=== PATIENT | male | born 1950 | race Caucasian/White ===

== ENCOUNTER 2016-08-16 01:30 | Inpatient (IN) ==
[2016-08-16] MEDS ORDERED: Ipratropium/Albuterol Neb 3 ML IH ONE (01:40)
[2016-08-16] MEDS ORDERED: Ipratropium/Albuterol Neb 3 ML ONE (01:41)
[2016-08-16] MEDS ORDERED: methylPREDNISolone 125 MG/2 ML VIAL IVP ONE (01:41)
--- NOTE | 2016-08-16 01:50 | Emergency Department Note ---
Disposition Clinical Impression: COPD exacerbation Disposition: Admitted As Inpatient Condition: Fair SOB HPI - General Chief Complaint: ED Chest Pain Stated Complaint: SOB,cough,chest pain Time Seen by Provider: 08/16/16 01:37 Source: patient Mode of arrival: private vehicle Limitations: no limitations Nursing Notes Reviewed: Yes Vital Signs Reviewed: Yes - History of Present Illness 66-year-old male history of oxygen-dependent COPD who presents to the ER with a chief complaint of shortness of breath. Patient reports he woke from sleep with abrupt onset shortness of breath. He states he tried a breathing treatment at home without any relief. He wears 2 L at home at rest and 4 L with activity. He denies any recent illnesses. He states when he woke up he was having a cough. He denies any fevers at home. He does endorse chest pain that is sharp in the center of his chest. He denies any history of cardiac events, OK, stents. Patient has been admitted for similar symptoms in the past. No other complaints. 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 Denies: fever, sputum production Treatment prior to arrival: oxygen, bronchodilator Cough present: Yes Cough Description: Involuntary Cough Frequency: Intermittent Sputum production: No Sputum Amount: None - Related Data Home oxygen amount: 2 liters Home Medications Medication Instructions Recorded Confirmed Albuterol Sulfate [Proair Hfa] 2 puff IH Q4H 04/20/15 02/28/16 Budesonide/Formoterol 160/4.5 2 puff IH BIDR 04/20/15 02/28/16 [Symbicort 160/4.5] Carbidopa/Levodopa ER 50/200 1 tab PO TID 04/20/15 02/28/16 [Sinemet ER 50-200 Tab] Pramipexole [Mirapex] 0.125 mg PO BID 04/20/15 02/28/16 Tiotropium [Spiriva] 18 mcg IH DAILY 04/20/15 02/28/16 clonazePAM [Klonopin] 0.5 mg PO Q8H 04/20/15 02/28/16 hydroCHLOROthiazide 12.5 mg PO DAILY 02/28/16 02/28/16 [Hydrochlorothiazide] Previous Rx's Medication Instructions Recorded Azithromycin [Zithromax] 500 mg PO DAILY #3 tablet 02/29/16 Metoprolol [Lopressor] 25 mg PO BID #60 tablet 02/29/16 Omeprazole [PriLOSEC] 20 mg PO DAILY #30 cap 02/29/16 predniSONE [Prednisone] 60 mg PO DAILY 14 Days 02/29/16 Allergies Allergy/AdvReac Type Severity Reaction Status Date / Time lisinopril Allergy Swelling Verified 08/16/16 01:31 of Lip/Tongue/Throat All systems ED: reviewed and negative except as stated. Constitutional: Denies: fever Cardiovascular: Reports: chest pain Respiratory: Reports: cough, dyspnea, wheezes Gastrointestinal: Denies: abdominal pain, nausea, vomiting Musculoskeletal: Denies: back pain Past Medical History - Past Medical History Attestation: Yes The following information was validated with the patient. Source: patient Medical history: Reports: arthritis, COPD, fibromyalgia, hypertension Surgical history: Reports: herniorrhaphy Psychiatric history: Reports: no psych history - Social History Smoking Status: Former smoker Smokeless Tobacco Status: No Alcohol use: Reports: none Drug use: Reports: none Physical Exam - General Limitations: no limitations General appearance: alert, in distress - Head Head exam: atraumatic, normocephalic, normal inspection - Eye Eye exam: Present: normal appearance, EOMI - ENT ENT exam: normal exam - Neck Neck exam: Present: normal inspection - Chest Chest inspection: Present: normal inspection, symmetric chest wall rise - Respiratory Respiratory exam: Present: respiratory distress (Patient has diffuse wheezing with poor air movement and accessory muscle use), wheezes, accessory muscle use , prolonged expiratory phase - Cardiovascular Cardiovascular exam: Present: normal rhythm, tachycardia, normal heart sounds - Abdominal Exam Abdominal exam: Present: soft, Non-Tender. Absent: tenderness - Extremities Exam Extremities exam: Present: normal inspection, full ROM - Expanded Upper Extremity Exam Shoulder exam: Present: normal inspection, full ROM Arm exam: Present: normal inspection, full ROM Elbow exam: Present: normal inspection, full ROM Forearm/Wrist exam: Present: normal inspection, full ROM Hand exam: Present: normal inspection, full ROM - Expanded Lower Extremity Exam Hip/Pelvis exam: Present: normal inspection, full ROM Upper leg exam: Present: normal inspection, full ROM Knee exam: Present: normal inspection, full ROM Lower leg exam: Present: normal inspection, full ROM Ankle exam: Present: normal inspection, full ROM Foot/toe exam: Present: normal inspection, full ROM - Neurological Exam Neurological exam: Present: alert - Psychiatric Psychiatric exam: Present: normal affect, normal mood - Skin Skin exam: Present: warm, dry, intact, normal color Course Course Narrative: Patient seen and examined. Vital signs reviewed. He appears in respiratory distress with poor air movement, accessory muscle use and diffuse wheezing. He has 92% on 3 L currently. Duo nebs will be started now as well as IV Solu- Medrol. EKG, chest x-ray and labs ordered. - Reevaluation(s) Reevaluation #1: Reevaluated after DuoNeb treatments. Patient still has diffuse wheezing and poor air movement. He is agreeable with trying BiPAP. Patient will be admitted for further management. Vital Signs Temperature 98.8 F 08/16/16 01:31 Pulse Rate 139 08/16/16 01:31 Respiratory Rate 26 08/16/16 01:31 Blood Pressure 162/109 08/16/16 01:31 O2 Sat by Pulse Oximetry 87 08/16/16 01:31 Temperature 98.8 F 08/16/16 01:31 Pulse Rate 130 08/16/16 03:00 Respiratory Rate 18 08/16/16 03:19 Blood Pressure 113/81 08/16/16 03:19 O2 Sat by Pulse Oximetry 94 08/16/16 03:00 Oxygen Delivery Oxygen Delivery Bipap Shortness of Breath/Dyspnea - MDM Narrative Medical decision making narrative: 66-year-old male history of oxygen-dependent COPD presents to the ER due to abrupt shortness of breath. Denies any recent illness. Woke up with a nonproductive cough and chest pain. He is usually on 2-4 L at home. He is 92% on 3 L here. After DuoNeb treatments and steroids he continues to have poor air movement and diffuse wheezing. Patient placed on BiPAP and admitted to the hospitalist service for further management. - Lab Data Lab results reviewed: Yes I reviewed the patient's lab results. Result diagrams: 08/16/16 01:50 08/16/16 01:50 Lab Results 08/16/16 08/16/16 08/16/16 Range/Units 01:50 01:50 01:50 WBC 6.3 (4.3-11.1) K/mcL RBC 4.97 (4.19-5.50) M/mcL Hgb 15.4 (12.9-16.9) g/dL Hct 46.7 (37.5-50.1) % MCV 94.0 (83.0-100.0) fL MCH 31.0 (28.0-33.3) pg MCHC 33.0 (31.6-35.5) g/dL RDW 13.2 (11.5-14.5) % Plt Count 192 (140-400) K/mcL MPV 9.9 (9.4-12.4) fL Immature Gran % 0.3 (0-4) % Seg Neutrophils % 60.3 % Lymphocytes % 22.6 % Monocytes % 10.7 % Eosinophils % 5.5 % Basophils % 0.6 % Neutrophils # 3.8 (1.6-8.9) K/mcL Lymphocytes # 1.4 (0.6-4.6) K/mcL Monocytes # 0.7 (0.0-1.3) K/mcL Eosinophils # 0.4 (0.0-0.6) K/mcL Basophils # 0.0 (0.0-0.2) K/mcL Sodium 143 (136-145) mEq/L Potassium 4.0 (3.5-4.5) mEq/L Chloride 103 (98-109) mEq/L Carbon Dioxide 28 (19-29) mEq/L BUN 18 (8-26) mg/dL Creatinine 1.38 H (0.72-1.25) mg/dL Est GFR ( Amer) > 60 (> 60) Est GFR (Non-Af Amer) 51 L (> 60) BUN/Creatinine Ratio 13 (6-26) Glucose 98 (70-99) mg/dL Calculated Osmolality 298 (280-300) Calcium 9.6 (8.6-10.8) mg/dL Troponin I (0-0.03) ng/mL B-Natriuretic Peptide < 10 (0-100) pg/mL 08/16/16 Range/Units 01:50 WBC (4.3-11.1) K/mcL RBC (4.19-5.50) M/mcL Hgb (12.9-16.9) g/dL Hct (37.5-50.1) % MCV (83.0-100.0) fL MCH (28.0-33.3) pg MCHC (31.6-35.5) g/dL RDW (11.5-14.5) % Plt Count (140-400) K/mcL MPV (9.4-12.4) fL Immature Gran % (0-4) % Seg Neutrophils % % Lymphocytes % % Monocytes % % Eosinophils % % Basophils % % Neutrophils # (1.6-8.9) K/mcL Lymphocytes # (0.6-4.6) K/mcL Monocytes # (0.0-1.3) K/mcL Eosinophils # (0.0-0.6) K/mcL Basophils # (0.0-0.2) K/mcL Sodium (136-145) mEq/L Potassium (3.5-4.5) mEq/L Chloride (98-109) mEq/L Carbon Dioxide (19-29) mEq/L BUN (8-26) mg/dL Creatinine (0.72-1.25) mg/dL Est GFR ( Amer) (> 60) Est GFR (Non-Af Amer) (> 60) BUN/Creatinine Ratio (6-26) Glucose (70-99) mg/dL Calculated Osmolality (280-300) Calcium (8.6-10.8) mg/dL Troponin I 0.00 (0-0.03) ng/mL B-Natriuretic Peptide (0-100) pg/mL - Radiology Data Radiology results reviewed: Yes I reviewed the patient's radiology results. Chest X-Ray 08/16/16 01:40 IMPRESSION: Emphysema. No definite acute disease. D/ / Thiago Moise MD / Thiago Moise MD Interpreting Provider: Thiago Moise MD - EKG Data EKG attestation: Yes I reviewed and interpreted this EKG. EKG results narrative: EKG demonstrates sinus tachycardia with a rate of 127 with PVCs. Normal axis. WI interval 139 QRS duration 99 QTc 353. EKG with significant artifact. No ST elevations or depressions. No acute ischemic findings. No significant changes from previous EKG dated 02/27/16. Critical Care Time Critical Care Time: Yes Total Critical Care Time: 35 Attestation: Critical care performed: Time is exclusive of separately billable procedures. Time includes: direct patient care, patient reassessment, coordination of patient care, interpretation of data (laboratory data, radiology data, and respiratory data), review of patient's medical records, medical consultation and documentation of patient care. Procedures included in critical care time: Procedures excluded from critical care time: S.Victor Manuel.Ronaldo - Rafael.Corry Situation: Demographics, MOA Background: Presenting Complaint, Relevant PMH, Meds, & Allergies Assessment: Vital Signs, Course and respsone to treatment, Exam Concerns, Patient/Family Expectation, Pertinant Lab Results, Outstanding Labs Recommendation: Barrier(s) to disposition, Recommendation based on pending studies, treatments, or consults SLaith Report Given to: Dr. Deric James Repor Time: 02:55 (recommended 2N) Attestation Statement - Attestation Attestation: I, Jam Murray MD, personally evaluated this patient and discussed their management with the resident physician. I reviewed the resident's note and agree with the documented findings, medical decision making, and plan of care. 66-year-old male with history of oxygen-dependent COPD presents to the emergency department with a complaint that he awoke from sleep about 1 hour prior to arrival with severe coughing and acutely increased shortness of breath. No relief with a nebulizer treatment at home. No significant chest pain. Patient states he just cannot get his breath. History of similar episodes in the past requiring hospital admission. On examination patient is a well-developed well-nourished elderly male in mild respiratory distress. He is obviously tachypneic and using accessory muscles. Sounds are markedly decreased bilaterally with diffuse coarse bilateral inspiratory and expiratory wheezes. Heart regular with moderate tachycardia. Abdomen soft and nontender with normal bowel sounds. EKG shows sinus tachycardia with occasional PVCs. No acute ischemic changes. Chest x-ray shows COPD. Labs reviewed. Minimal improvement with Duonebs and Solu-Medrol IV. The hospitalist, Dr. Leos, was consulted and accepted admission of the patient.
[2016-08-16 02:05] LABS: Basophils % 0.6 %; Eosinophils # 0.4 K/mcL (0.0-0.6); Eosinophils % 5.5 %; Hematocrit 46.7 % (37.5-50.1); Hemoglobin 15.4 g/dL (12.9-16.9); Immature Granulocytes % 0.3 % (0-4); Lymphocytes # 1.4 K/mcL (0.6-4.6); Lymphocytes % 22.6 %; Mean Platelet Volume 9.9 fL (9.4-12.4); Monocytes # 0.7 K/mcL (0.0-1.3); Monocytes % 10.7 %; Neutrophils # 3.8 K/mcL (1.6-8.9); Platelet Count 192 K/mcL (140-400); Red Blood Count 4.97 M/mcL (4.19-5.50); Red Cell Distribution Width 13.2 % (11.5-14.5); Segmented Neutrophils % 60.3 %
[2016-08-16 02:20] LABS: BUN/Creatinine Ratio 13 (6-26); Blood Urea Nitrogen 18 mg/dL (8-26); Calcium 9.6 mg/dL (8.6-10.8); Carbon Dioxide 28 mEq/L (19-29); Chloride 103 mEq/L (98-109); Glucose 98 mg/dL (70-99); Osmolality,Calculated 298 (280-300); Sodium 143 mEq/L (136-145); eGFR For African Americans > 60 (> 60); eGFR For Non-African Americans 51 (> 60)
[2016-08-16] MEDS ORDERED: Naloxone 0.4 MG/ML INJ IVP PRN (03:58)
[2016-08-16] MEDS ORDERED: Ondansetron 4 MG/2 ML VIAL IVP PRN (03:58)
[2016-08-16] MEDS ORDERED: Acetaminophen 325 MG TABLET PO PRN (03:58)
--- NOTE | 2016-08-16 04:42 | Internal Med History&Physical ---
Date of Encounter: 08/16/16 Time of Encounter: 04:30 Assessment and Plan (1) COPD exacerbation Current visit: Yes Status: Acute Pt. has sudden onset shortness of breath waking him up from sleep, cough without sputum Using accessory muscles of respiration on exam with reduced air entry and bilateral wheezing CXR without acute pathology Labs reviewed Admit to inpatient status. Expected to be in the hospital for at least 2 midnights. High risk due to risk of worsening respiratory failure which may require intubation and mechanical ventilation. Expected discharge disposition is to home. Intravenous steroids. By mouth antibiotics for 5 days. Breathing treatments. BiPAP support. (2) Hypertension Current visit: Yes Status: Chronic Continue home medications. Adequately controlled. Qualifiers: Hypertension type: essential hypertension Qualified Code(s): I10 - Essential (primary) hypertension (3) Parkinson disease Current visit: Yes Status: Chronic Stable. Continue home medications. (4) Respiratory failure Current visit: Yes Status: Chronic Patient uses oxygen around the clock at home. Currently requiring increased oxygen and noninvasive positive pressure ventilatory support. Respiratory failure due to COPD exacerbation. Treatment as mentioned above. Qualifiers: Chronicity: acute on chronic Respiratory failure complication: hypoxia Qualified Code(s): J96.21 - Acute and chronic respiratory failure with hypoxia Internal Medicine - H&P: HPI Chief complaint: Shortness of breath Admitted From: Emergency Dept Plans for Post Hospital Care: Home History of present illness: Mr. Tse is a 66 year old male with a history of COPD on home oxygen therapy who presented to the hospital due to sudden onset shortness of breath. Patient states that he woke up from sleep at around midnight due to sudden onset shortness of breath. Shortness of breath is associated with dry cough without any sputum collection. He also reports wheezing. He states that when he coughs , he has chest pain. He states that the pain as 9/10 in intensity in the middle of the chest that is dull in nature without any radiation. Aggravated by coughing and deep breathing and relieved by rest and pain medication. Denies feeling lightheaded, palpitations. Reports some swelling in his legs. Denies any recent weight changes, fever or chills. Denies any recent sick contacts. Denies any urinary symptoms, nausea, vomiting, abdominal pain, diarrhea or constipation. Past Med Surg Social Fam HX - Past Medical History Attestation: Yes The following information was validated with the patient. Source: patient Medical history: arthritis, COPD, fibromyalgia, hypertension Psychiatric history: no psych history - Past Surgical History Surgical History: herniorrhaphy - Social History Smoking Status: Former smoker Smokeless Tobacco Status: No Alcohol use: none Drug use: marijuana Current living situation: Home - Independent Activity Level: Independent ambulation Recent Out of Country Travel Within the Last 8 Weeks: No Exposure or Possible Exposure to Illness During Travel: No - Family History Mother Living Status: Still Living Father Living Status: Hx Family Cancer: Yes Internal Medicine - H&P: Meds Albuterol Sulfate [Proair Hfa] 2 puff IH Q4H 04/20/15 [History] Budesonide/Formoterol 160/4.5 [Symbicort 160/4.5] 2 puff IH BIDR 04/20/15 [ History] Carbidopa/Levodopa ER 50/200 [Sinemet ER 50-200 Tab] 1 tab PO TID 04/20/15 [ History] Pramipexole [Mirapex] 0.125 mg PO BID 04/20/15 [History] Tiotropium [Spiriva] 18 mcg IH DAILY 04/20/15 [History] clonazePAM [Klonopin] 0.5 mg PO Q8H 04/20/15 [History] hydroCHLOROthiazide [Hydrochlorothiazide] 12.5 mg PO DAILY 02/28/16 [History] Azithromycin [Zithromax] 500 mg PO DAILY #3 tablet 02/29/16 [Rx] Metoprolol [Lopressor] 25 mg PO BID #60 tablet 02/29/16 [Rx] Omeprazole [PriLOSEC] 20 mg PO DAILY #30 cap 02/29/16 [Rx] predniSONE [Prednisone] 60 mg PO DAILY 14 Days 02/29/16 [Rx] Allergies lisinopril Allergy (Verified 08/16/16 01:31) Swelling of Lip/Tongue/Throat All Systems PM: A 10-system review of systems was performed and is negative for pertinent findings except as documented above in the HPI. Review of systems: 10 systems have been reviewed and are negative except as mentioned in the history of present illness - Constitutional Vitals: Temp Pulse Resp BP Pulse Ox 97.6 F 131 22 123/74 96 08/16/16 04:16 08/16/16 04:16 08/16/16 04:16 08/16/16 04:16 08/16/16 04:16 Exam: Gen.: Lying in bed. Mild to moderate distress. On BiPAP currently. Eyes: Pupils equal, round and reactive to light. Extraocular muscles intact. ENT: Moist mucous membranes. No oropharyngeal erythema or discharge. Chest: Reduced breath sounds bilaterally. Diffuse wheezing present. Using some accessory muscles of respiration. CVS: First and second heart sounds present. No murmurs, rubs or gallops. Tachycardia appreciated. Distant heart sounds. Abdomen: Soft, nontender, nondistended. Bowel sounds present. No hepatosplenomegaly. Skin: No decubitus ulcers appreciated. 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 Psychiatric: Alert, awake and oriented to time, place and person. Lymphatic system: No lymphadenopathy appreciated Internal Med - H&P Results - Labs CBC & Chem 7: 08/16/16 01:50 08/16/16 01:50 - EKG Data -: EKG Interpreted by Myself EKG shows normal: sinus rhythm, ST-T waves (No ST-T wave changes suggestive of ischemia) Rate: tachycardia - EKG Data Prior EKG available for review: yes When compared to previous EKG: there is no significant change - Diagnostic Studies Chest x-ray Status: image reviewed by me (No acute infiltrates or abnormalities detected; Hyperinflation present)
[2016-08-16] MEDS: *HR* Heparin 5,000 UNIT/ML VIAL SQ SCH ×3 (08:51→23:26)
[2016-08-16] MEDS: Doxycycline 100 MG CAPSULE PO SCH ×2 (08:52→20:19)
[2016-08-16] MEDS ORDERED: Albuterol 2.5 MG/3 ML NEBULIZER IH PRN (10:42)
[2016-08-16] MEDS ORDERED: Saliva Stimulant 100ml BOTTLE PO PRN (10:46)
[2016-08-16] MEDS: Ipratropium/Albuterol Neb 3 ML IH SCH ×3 (10:54→22:43)
[2016-08-16] MEDS ORDERED: clonazePAM 0.5 MG TABLET PO PRN (11:24)
[2016-08-16] MEDS: predniSONE 20 MG TABLET PO SCH (11:52)
--- NOTE | 2016-08-16 13:47 | Event Note ---
Date of Encounter: 08/16/16 Time of Encounter: 08:35 Patient continues to have shortness of breath although slightly improved since initial presentation. Still requiring BiPAP intermittently. We will evaluate overnight for BiPAP use. Continue current management with bronchodilators, systemic steroids and doxycycline. Will resume patient's antiparkinsonian medications
[2016-08-16] MEDS: Carbidopa/Levodopa ER 50/200 TABLET PO SCH ×2 (14:31→20:19)
[2016-08-17 03:45] LABS: BUN/Creatinine Ratio 26 (6-26); Blood Urea Nitrogen 20 mg/dL (8-26); Calcium 9.6 mg/dL (8.6-10.8); Carbon Dioxide 30 mEq/L (19-29); Chloride 102 mEq/L (98-109); Glucose 109 mg/dL (70-99); Osmolality,Calculated 297 (280-300); Sodium 142 mEq/L (136-145); eGFR For African Americans > 60 (> 60); eGFR For Non-African Americans > 60 (> 60)
[2016-08-17] MEDS: Ipratropium/Albuterol Neb 3 ML IH SCH ×2 (04:35→12:04)
[2016-08-17 05:46] LABS: ABG Base Excess 7.7 mEq/L (-2.0 to 3.0); ABG HCO3 34.2 mEQ/L (21-27); ABG Oxygen Saturation 94 % (95-98); ABG PCO2 54 mmHg (35-45); ABG PH 7.41 pH Units (7.32-7.45); ABG PO2 70 mmHg (85-104); ABG TCO2 35.9 mEq/L (20-26)
[2016-08-17 05:47] LABS: Blood Gas FiO2 28 %
[2016-08-17] MEDS: predniSONE 20 MG TABLET PO SCH (08:15)
[2016-08-17] MEDS: Carbidopa/Levodopa ER 50/200 TABLET PO SCH (08:16)
[2016-08-17] MEDS: *HR* Heparin 5,000 UNIT/ML VIAL SQ SCH (08:16)
[2016-08-17] MEDS: Doxycycline 100 MG CAPSULE PO SCH (08:16)
--- NOTE | 2016-08-17 09:06 | Electrocardiograph Report ---
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
[2016-08-17 10:52] VITALS: BP 145/90
--- NOTE | 2016-08-17 11:59 | Discharge Summary ---
Date of Encounter: 08/17/16 Time of Encounter: 11:54 - Discharge Diagnosis (1) Acute exacerbation of chronic obstructive airways disease Priority: Primary Status: Acute (2) Hypertension Priority: Secondary Status: Chronic Qualifiers: Hypertension type: essential hypertension Qualified Code(s): I10 - Essential (primary) hypertension (3) Parkinson disease Priority: Secondary Status: Chronic (4) Respiratory failure Priority: Secondary Status: Chronic Qualifiers: Chronicity: acute on chronic Respiratory failure complication: hypoxia and hypercapnia Qualified Code(s): J96.21 - Acute and chronic respiratory failure with hypoxia; J96.22 - Acute and chronic respiratory failure with hypercapnia - Discharge Medications Prescriptions: Doxycycline Hyclate 200 mg PO DAILY #4 tablet. predniSONE [PredniSONE] See Taper PO DAILY 8 Days Home Medications: Albuterol Sulfate [Proair Hfa] 2 puff IH Q4H 04/20/15 [History] Carbidopa/Levodopa ER 50/200 [Sinemet ER 50-200 Tab] 1 tab PO TID 04/20/15 [ History] Pramipexole [Mirapex] 0.125 mg PO BID 04/20/15 [History] Tiotropium [Spiriva] 18 mcg IH DAILY 04/20/15 [History] clonazePAM [Klonopin] 0.5 mg PO Q8H 04/20/15 [History] hydroCHLOROthiazide [Hydrochlorothiazide] 12.5 mg PO DAILY 02/28/16 [History] Metoprolol [Lopressor] 25 mg PO BID #60 tablet 02/29/16 [Rx] Omeprazole [PriLOSEC] 20 mg PO DAILY #30 cap 02/29/16 [Rx] Fluticasone/Salmeterol [Advair 250-50 Diskus] 1 puff IH BID 08/16/16 [History] Doxycycline Hyclate 200 mg PO DAILY #4 tablet. 08/17/16 [Rx] predniSONE [PredniSONE] See Taper PO DAILY 8 Days 08/17/16 [Rx] Allergies/Adverse Reactions: Allergies lisinopril Allergy (Verified 08/16/16 01:31) Swelling of Lip/Tongue/Throat Date of admission: 08/16/16 06:11 Primary care physician: Archana Ley Discharging clinician: Dania Woodard Anticipated date of discharge: 08/17/16 - Patient Status Disposition: Home, Self-Care Condition: Good Functional capacity at discharge: independent ambulation Overall status at discharge: patient is progressing back to baseline - Discharge Instructions Instructions: Using Oxygen at Home (GEN), Chronic Obstructive Pulmonary Disease (DC), Chronic Hypertension (DC), BiPAP (GEN) Follow Up With: Archana Ley MD [Primary Care Provider] - 08/26/16 1:45 pm (Please follow up as schedule...) - Diet and Activity Activity: wear oxygen at all times Diet: low fat, low cholesterol, low salt diet Hospital course: Mr. Tse is a 66 year old male patient with a history of disease, COPD, essential hypertension who was admitted here with acute exacerbation of COPD after presented with shortness of breath. He was treated with oxygen supplementation with noninvasive positive pressure ventilation with improvement in his symptoms. He was also treated with steroids, oral antibiotics and bronchodilators. He has turned around much quicker than expected and is now feeling much better. He is able to ambulate well with his usual amount of oxygen. He was evaluated overnight for BiPAP use and has qualified for home use of BiPAP. A prescription for the same has been provided for the patient. He does need BiPAP due to his chronic obstructive pulmonary disease. At this time, the patient is clinically stable for discharged on a steroid taper, short course of antibiotics and home use. He will continue to use portable oxygen [id number] at 2-3 L/m. He can follow up with his primary care provider and sample case porter for further management of his chronic medical conditions. - Time Spent with Patient Total time spent providing and/or coordinating discharge services: Greater than 30 minutes (40 min) - Constitutional Vitals: Temp Pulse Resp BP Pulse Ox 98.2 F 99 20 145/90 99 08/17/16 10:50 08/17/16 10:50 08/17/16 10:50 08/17/16 10:50 08/17/16 10:50 General appearance: Present: cooperative, mild distress, A&O X 3, answers questions appropriately - Respiratory Respiratory exam: Present: prolonged expiratory phase, wheezes. Absent: accessory muscle use, rales, rhonchi - GI/Abdominal GI/Abdominal exam: Present: normal bowel sounds, soft, no peritoneal signs. Absent: distended, tenderness - Extremities Exam Extremities exam: Present: warm, radial pulses palpable and symetrical. Absent : calf tenderness, cyanotic, pedal edema - Neurological Exam Neurological exam: Present: alert, CN II-XII intact, oriented X3, no focal deficits. Absent: facial droop, speech deficit - Attending Attestation This document has been at least partially created by [employer] recognition technology by Dr. Woodard. Errors in grammar, wording or other phrases may exist. If errors are found after the documentation is signed, they will be addressed individually in the addendum section of this document when appropriate.
== END 2016-08-17 13:23 | disposition home or self-care (01) | DRG 190 ==
LOC: 2ANU 01:30 → EMEROO 01:30 → 2ANU 03:40
PROVIDERS: ADMIT Internal Medicine Sleep Medicine; ATTEND Internal Medicine